=== PATIENT | female | born 2000 | race Caucasian/White ===

== ENCOUNTER → 2020-11-30 14:40 | Outpatient (CLI) | payer SELFPAY ==
[2020-11-30 16:45] LABS: Absolute Lymphocyte Count 1.05 X10^3/uL (0.83-4.51); Absolute Neutrophil Count 6.6 X10^3/uL (2.0-7.7); Basophil# 0.02 X10^3/uL; Basophil% 0.2 % (0-1); Eosinophil# 0.01 X10^3/uL; Eosinophils% 0.1 % (0-5); Hematocrit 39.9 % (37-47); Hemoglobin 13.3 g/dL (12.0-15.0); Lymphocyte # 1.05 X10^3/ul (4.0); Mean Corp Hgb Conc 33.3 g/dL (32-36); Mean Corpuscular Hgb 29.1 pg (27.0-32.0); Mean Corpuscular Volume 87.3 fL (81-99); Mean Platelet Vol. 10.1 fl (6.2-12.0); Monocyte# 0.42 X10^3/uL; Monocyte% 5.2 % (0-10); NRBC Flagged by Analyzer 0 % (0-5); Neutrophil # 6.57 X10^3/uL (2.7-7.7); Neutrophil % 81.1 % (47-70); Platelet Count 280 K/mm3 (150-450); RBC Distribution Width CV 11.6 % (11.6-14.6); RBC Distribution Width SD 37.3 fl (35.1-43.9); Red Blood Count 4.57 M/mm3 (4.2-5.4); White Blood Count 8.1 K/mm3 (4.4-11.0)
[2020-12-01 09:43] LABS: HIV - WCH Non-Reactive (Nonreactive); Hepatitis B Surface Antigen Non-Reactive (Nonreactive); Hepatitis C Antibody Non-Reactive (Nonreactive); Rubella IgG Reactive (Nonreactive); Syphilis Antibodies Non-reactive
[2020-12-03 06:07] LABS: Chlamydia By Nucleic Acid AMP Negative (Negative)
[2020-12-03 08:26] LABS: Gonococcus By Nucleic Acid AMP Negative (Negative)
[2020-12-03 13:06] LABS: HPV Reflexed? NOT INDICATED
== END ==
PROVIDERS: Visit Provider Student in an Organized Health Care Education/Training Program
DX: Z34.81 Encounter for supervision of other normal pregnancy, first trimester (principal)
CPT/HCPCS: 36415; 85025; 86703; 86762; 86803; 87086; 87340; 87491; 87591; 88175; G0145

== ENCOUNTER → 2021-03-25 09:07 | Outpatient (CLI) | payer SELFPAY ==
[2021-03-25 13:26] LABS: Hematocrit 35.3 % (37-47); Hemoglobin 11.8 g/dL (12.0-15.0); Mean Corp Hgb Conc 33.4 g/dL (32-36); Mean Corpuscular Hgb 30.8 pg (27.0-32.0); Mean Corpuscular Volume 92.2 fL (81-99); Mean Platelet Vol. 10.2 fl (6.2-12.0); Platelet Count 267 K/mm3 (150-450); RBC Distribution Width CV 12.4 % (11.6-14.6); RBC Distribution Width SD 41.8 fl (35.1-43.9); Red Blood Count 3.83 M/mm3 (4.2-5.4); White Blood Count 7.8 K/mm3 (4.4-11.0)
[2021-03-25 13:30] LABS: Glucose Challenge Gest 1H 50g 72 mg/dL (70-140)
== END ==
PROVIDERS: Visit Provider Student in an Organized Health Care Education/Training Program
DX: Z34.82 Encounter for supervision of other normal pregnancy, second trimester (principal)
CPT/HCPCS: 36415; 82950; 85027

== ENCOUNTER → 2021-06-09 14:49 | Outpatient (CLI) | payer SELFPAY | PROVIDERS: Visit Provider Obstetrics & Gynecology | DX: Z36.85 Encounter for antenatal screening for Streptococcus B (principal) | CPT/HCPCS: 87081 ==

== ENCOUNTER → 2021-07-02 16:21 | Outpatient (CLI) | payer SELFPAY ==
[2021-07-02 16:47] LABS: Hematocrit 33.3 % (37-47); Hemoglobin 11.2 g/dL (12.0-15.0); Mean Corp Hgb Conc 33.6 g/dL (32-36); Mean Corpuscular Hgb 30.2 pg (27.0-32.0); Mean Corpuscular Volume 89.8 fL (81-99); Mean Platelet Vol. 10.1 fl (6.2-12.0); Platelet Count 269 K/mm3 (150-450); RBC Distribution Width CV 12.4 % (11.6-14.6); Red Blood Count 3.71 M/mm3 (4.2-5.4); White Blood Count 8.1 K/mm3 (4.4-11.0)
[2021-07-02 17:00] LABS: Protein, Urine (Random) 7.8 mg/dL (<11.9); Protein:Creat Ratio 224 mg/g CRE (0-200)
[2021-07-02 17:46] LABS: ALB/GLOB Ratio 0.5 RATIO (0.9-2.4); AST(SGOT) 42 U/L (15-37); Alanine Aminotransfer ALT/SGPT 72 U/L (13-56); Albumin, Serum 2.6 g/dL (3.2-5.0); Alkaline Phosphatase 139 U/L (45-117); Anion Gap 10 (5-15); BUN 12 mg/dL (7-18); BUN/Creat Ratio 17.4 RATIO (10-20); Calcium,Total 9.2 mg/dL (8.5-10.1); Chloride 105 mmol/L (98-107); Creatinine, Serum 0.69 mg/dL (0.55-1.02); EST Glomerular Filtration Rate 113 mL/min (>60); Est Glom Filt Rate - Afr Amer 136 mL/min (>60); Globulin 4.9 g/dL (2.2-4.2); Glucose 75 mg/dL (74-106); LDH 179 U/L (84-246); Potassium 3.8 mmol/L (3.5-5.1); Protein, Total 7.5 g/dL (6.4-8.2); Sodium Level 136 mmol/L (136-145); Uric Acid 5.8 mg/dL (2.6-6.0)
== END ==
PROVIDERS: Visit Provider Obstetrics & Gynecology
DX: Z34.83 Encounter for supervision of other normal pregnancy, third trimester (principal)
CPT/HCPCS: 36415; 80053; 82570; 83615; 84156; 84550; 85027

== ENCOUNTER 2021-07-03 15:25 | Outpatient (CLI) | payer SELFPAY ==
[2021-07-03 15:58] VITALS: BP 119/73; PULSE 79
--- NOTE | 2021-07-03 16:05 | OB.TRI.NOTE ---
HPI - General HPI Narrative EDDIE NSASAR, is a 20 F who presents for labs and blood pressure check PFSH PFSH Home Medications [id number] [] 1 tab PO 07/03/21 [History Last Taken 07/03/21 14:00] Allergy/AdvReac Type Severity Reaction Status Date / Time No Known Allergies Allergy Verified 07/03/21 16:05 NST FHR Rate Baby A Baseline: 130 Variability:: Moderate Accelerations:: 15 x 15 Decelerations:: None NST Reactive:: Yes Uterine Activity:: quiet Assessment & Plan (1) : PLAN: Patient arrives for blood pressure check and labs. Patient asymptomatic. Blood pressures within normal limits. Labs stable, LFTs slightly over normal but not doubled the upper limit of normal. All other labs within normal limits. Recent Covid infection possible reason for slightly elevated LFTs. No signs of preeclampsia at this time. Okay to discharge home and follow-up at scheduled appointments.
[2021-07-03 16:07] VITALS: BMI 30.5
[2021-07-03 16:15] VITALS: BP 117/74; PULSE 83
[2021-07-03 16:54] VITALS: BP 124/70; PULSE 73
[2021-07-03 17:17] LABS: Absolute Lymphocyte Count 1.38 X10^3/uL (0.83-4.51); Absolute Neutrophil Count 6.6 X10^3/uL (2.0-7.7); Basophil# 0.03 X10^3/uL; Basophil% 0.3 % (0-1); Eosinophil# 0.03 X10^3/uL; Eosinophils% 0.3 % (0-5); Hematocrit 32.7 % (37-47); Hemoglobin 11.2 g/dL (12.0-15.0); Lymphocyte # 1.38 X10^3/ul (0.83-4.51); Lymphocyte % 15.8 % (19-41); Mean Corp Hgb Conc 34.3 g/dL (32-36); Mean Corpuscular Hgb 30.4 pg (27.0-32.0); Mean Corpuscular Volume 88.9 fL (81-99); Mean Platelet Vol. 10.3 fl (6.2-12.0); Monocyte# 0.59 X10^3/uL; Monocyte% 6.8 % (0-10); NRBC Flagged by Analyzer 0 % (0-5); Neutrophil # 6.56 X10^3/uL (2.7-7.7); Neutrophil % 75.2 % (47-70); Platelet Count 256 K/mm3 (150-450); RBC Distribution Width CV 12.4 % (11.6-14.6); RBC Distribution Width SD 39.5 fl (35.1-43.9); Red Blood Count 3.68 M/mm3 (4.2-5.4); White Blood Count 8.7 K/mm3 (4.4-11.0)
[2021-07-03 17:22] VITALS: BP 127/82; PULSE 68
[2021-07-03 17:34] LABS: ALB/GLOB Ratio 0.6 RATIO (0.9-2.4); AST(SGOT) 38 U/L (15-37); Alanine Aminotransfer ALT/SGPT 64 U/L (13-56); Albumin, Serum 2.7 g/dL (3.2-5.0); Alkaline Phosphatase 132 U/L (45-117); Anion Gap 10 (5-15); BUN 14 mg/dL (7-18); BUN/Creat Ratio 20.2 RATIO (10-20); Calcium,Total 9.6 mg/dL (8.5-10.1); Chloride 107 mmol/L (98-107); Creatinine, Serum 0.69 mg/dL (0.55-1.02); EST Glomerular Filtration Rate 112 mL/min (>60); Est Glom Filt Rate - Afr Amer 135 mL/min (>60); Globulin 4.7 g/dL (2.2-4.2); Glucose 84 mg/dL (74-106); LDH 180 U/L (84-246); Potassium 3.9 mmol/L (3.5-5.1); Protein, Total 7.4 g/dL (6.4-8.2); Sodium Level 138 mmol/L (136-145)
== END 2021-07-03 17:48 | disposition home or self-care (01) ==
LOC: WPOUT 15:30 → WP 15:31
PROVIDERS: Referring Provider Obstetrics & Gynecology; Visit Provider Obstetrics & Gynecology
DX: Z34.90 Encounter for supervision of normal pregnancy, unspecified, unspecified trimester (principal); Z86.16 Personal history of COVID-19
CPT/HCPCS: 59050; 80053; 83615; 85025; 99218; G0378

== ENCOUNTER → 2021-07-09 13:23 | Outpatient (CLI) | payer SELFPAY ==
[2021-07-09 14:09] LABS: Hematocrit 33.7 % (37-47); Hemoglobin 11.4 g/dL (12.0-15.0); Mean Corp Hgb Conc 33.8 g/dL (32-36); Mean Corpuscular Hgb 30.5 pg (27.0-32.0); Mean Corpuscular Volume 90.1 fL (81-99); Mean Platelet Vol. 10.9 fl (6.2-12.0); Platelet Count 234 K/mm3 (150-450); RBC Distribution Width CV 12.8 % (11.6-14.6); RBC Distribution Width SD 41.6 fl (35.1-43.9); Red Blood Count 3.74 M/mm3 (4.2-5.4); White Blood Count 10.9 K/mm3 (4.4-11.0)
[2021-07-09 14:22] LABS: ALB/GLOB Ratio 0.6 RATIO (0.9-2.4); AST(SGOT) 23 U/L (15-37); Alanine Aminotransfer ALT/SGPT 29 U/L (13-56); Albumin, Serum 2.9 g/dL (3.2-5.0); Alkaline Phosphatase 146 U/L (45-117); Anion Gap 10 (5-15); BUN 8 mg/dL (7-18); BUN/Creat Ratio 13.1 RATIO (10-20); Calcium,Total 9.4 mg/dL (8.5-10.1); Chloride 104 mmol/L (98-107); Creatinine, Serum 0.61 mg/dL (0.55-1.02); EST Glomerular Filtration Rate 130 mL/min (>60); Est Glom Filt Rate - Afr Amer 157 mL/min (>60); Glucose 79 mg/dL (74-106); LDH 173 U/L (84-246); Potassium 3.4 mmol/L (3.5-5.1); Protein, Total 7.9 g/dL (6.4-8.2); Sodium Level 137 mmol/L (136-145); Uric Acid 6.3 mg/dL (2.6-6.0)
[2021-07-09 14:24] LABS: Protein, Urine (Random) 20.6 mg/dL (<11.9); Protein:Creat Ratio 349 mg/g CRE (0-200)
== END ==
PROVIDERS: Visit Provider Obstetrics & Gynecology
DX: Z34.83 Encounter for supervision of other normal pregnancy, third trimester (principal)
CPT/HCPCS: 36415; 80053; 82570; 83615; 84156; 84550; 85027

== ENCOUNTER 2021-07-09 19:30 | Inpatient (IN) | payer SELFPAY ==
[2021-07-09] VITALS (7 sets, daily range): BP systolic 130–140; BP diastolic 67–87; PULSE 70–93; TEMP 36.1–36.7; O2SAT 97; BMI 29.8
[2021-07-09] MEDS: Lactated Ringers 1,000 ML 50 ML IV (21:10)
[2021-07-09] MEDS: Lactated Ringers 500 ML 999 ML IV ×2 (21:20→22:50)
[2021-07-09 21:24] LABS: Absolute Lymphocyte Count 1.63 X10^3/uL (0.83-4.51); Absolute Neutrophil Count 7.5 X10^3/uL (2.0-7.7); Basophil# 0.05 X10^3/uL; Basophil% 0.5 % (0-1); Eosinophil# 0.05 X10^3/uL; Eosinophils% 0.5 % (0-5); Hematocrit 31.4 % (37-47); Hemoglobin 10.4 g/dL (12.0-15.0); Lymphocyte # 1.63 X10^3/ul (0.83-4.51); Lymphocyte % 16.3 % (19-41); Mean Corp Hgb Conc 33.1 g/dL (32-36); Mean Corpuscular Volume 90.5 fL (81-99); Mean Platelet Vol. 10.6 fl (6.2-12.0); Monocyte# 0.71 X10^3/uL; Monocyte% 7.1 % (0-10); NRBC Flagged by Analyzer 0 % (0-5); Neutrophil # 7.45 X10^3/uL (2.7-7.7); Neutrophil % 74.7 % (47-70); Platelet Count 241 K/mm3 (150-450); RBC Distribution Width CV 12.9 % (11.6-14.6); RBC Distribution Width SD 41.5 fl (35.1-43.9); Red Blood Count 3.47 M/mm3 (4.2-5.4)
[2021-07-09] MEDS: Acetaminophen 500 MG Tablet PO (22:52)
[2021-07-10] VITALS (88 sets, daily range): BP systolic 117–141; BP diastolic 66–96; PULSE 41–188; RESP 16; TEMP 36–37.1; O2SAT 83–100
[2021-07-10] MEDS: Oxytocin 30 units/NS 500 ml 30 UNITS/500 ML IV.SOLN IV (00:49)
[2021-07-10 01:59] LABS: ROM Internal Control Test YES-OK TO RESULT pt. (Internal QC)
[2021-07-10 02:00] LABS: ROM Patient Test POSITIVE (Negative)
[2021-07-10] MEDS: fentaNYL 100 MCG/2 ML Ampul IV (02:13)
[2021-07-10] MEDS: Lactated Ringers 500 ML 999 ML IV ×2 (02:31→05:10)
[2021-07-10] MEDS: fentaNYL-bupivacaine (epidural) 100 ML BAG EPIDURAL ×2 (06:00→10:09)
[2021-07-10] MEDS: 0.9% Normal Saline Single 100 ML IV.SOLN. INTRA-UTER (09:20)
--- NOTE | 2021-07-10 09:20 | HP.PCM.OB_ITS ---
HPI - General General Date of Admission: 07/09/21 HPI Narrative 20 yo admitted at 40/4w, KARLA 07/05/21 by early US, admitted for induction of labor for pre-eclampsia without severe features. Denies VERDE, vision changes, chest pain, dyspnea, nausea/emesis. Reports FM, contractions. Denies LOF, VB. PFSH PFSH Medical History (Updated 07/10/21 @ 09:[address] Dalila Mac, DO) Tonsillectomy planned Home Medications [id number] [] 1 tab PO DAILY 07/03/21 [History Last Taken 07/08/21] Allergy/AdvReac Type Severity Reaction Status Date / Time No Known Allergies Allergy Verified 07/03/21 16:05 Surgical History History of surgery Social History (Updated 07/10/21 @ 09:[address] Dalila Mac, ) Smoking Status: Never smoker alcohol intake: never substance use type: does not use History 1 Elective abortions Hx Para 0 Spontaneous abortions Hx # Term Pregnancies Ectopic pregnancies Hx # Pregnancies Multiple births # of living children NST FHR Rate Baby A Baseline: 145 Variability:: Moderate Accelerations:: 15 x 15 Decelerations:: None NST Reactive:: Yes FHR Category:: Category I ROS Constitutional Constitutional: Reports systems reviewed and no addt'l complaints, except as documented Eyes Eyes: Reports systems reviewed and no addt'l complaints, except as documented ENT HEENT: Reports systems reviewed and no addt'l complaints, except as documented Cardiovascular Cardiovascular: Reports systems reviewed and no addt'l complaints, except as documented Respiratory/Chest Respiratory/Chest: Reports systems reviewed and no addt'l complaints, except as documented Gastrointestinal Gastrointestinal: Reports systems reviewed and no addt'l complaints, except as documented Genitourinary Genitourinary: Reports systems reviewed and no addt'l complaints, except as documented Musculoskeletal Musculoskeletal: Reports systems reviewed and no addt'l complaints, except as documented Neurologic Neurologic: Reports systems reviewed and no addt'l complaints, except as documented Psychiatric Psychiatric: Reports systems reviewed and no addt'l complaints, except as docume nted Vital Signs Vital Signs Vital Signs: 07/09/21 20:33 07/09/21 20:34 07/09/21 20:40 Temperature 98.0 F Temperature Source Temporal Pulse Rate 91 93 78 Blood Pressure 132/84 H BP Systolic 132 BP Diastolic 84 Pulse Ox 97 07/09/21 22:19 07/09/21 22:35 07/09/21 23:21 Temperature Temperature Source Pulse Rate 72 70 74 Blood Pressure 140/87 H 133/81 H 130/67 H BP Systolic 140 133 130 BP Diastolic 87 81 67 Pulse Ox 07/09/21 23:22 07/10/21 00:50 07/10/21 00:51 Temperature 97.0 F L 97.0 F L Temperature Source Temporal Temporal Pulse Rate 80 Blood Pressure 127/80 H BP Systolic 127 BP Diastolic 80 Pulse Ox 07/10/21 01:24 07/10/21 02:16 07/10/21 02:17 Temperature 96.9 F L 97.2 F L Temperature Source Temporal Temporal Pulse Rate 69 82 Blood Pressure 122/70 H 141/86 H BP Systolic 122 141 BP Diastolic 70 86 Pulse Ox 07/10/21 03:25 07/10/21 05:41 07/10/21 05:42 Temperature 97.9 F Temperature Source Temporal Pulse Rate 72 108 H 93 Blood Pressure 135/90 H 137/96 H BP Systolic 135 137 BP Diastolic 90 96 Pulse Ox 99 100 07/10/21 05:46 07/10/21 05:51 07/10/21 05:52 Temperature Temperature Source Pulse Rate 82 118 H 97 Blood Pressure 138/93 H 139/92 H BP Systolic 138 139 BP Diastolic 93 92 Pulse Ox 100 100 07/10/21 05:56 07/10/21 05:57 07/10/21 06:01 Temperature Temperature Source Pulse Rate 75 85 Blood Pressure 137/88 H BP Systolic 137 BP Diastolic 88 Pulse Ox 100 98 07/10/21 06:02 07/10/21 06:06 07/10/21 06:07 Temperature Temperature Source Pulse Rate 86 78 Blood Pressure 134/88 H 134/81 H BP Systolic 134 134 BP Diastolic 88 81 Pulse Ox 99 07/10/21 06:11 07/10/21 06:12 07/10/21 06:16 Temperature Temperature Source Pulse Rate 81 78 Blood Pressure 135/82 H 131/76 H BP Systolic 135 131 BP Diastolic 82 76 Pulse Ox 98 98 07/10/21 06:21 07/10/21 06:26 07/10/21 06:28 Temperature Temperature Source Pulse Rate 78 72 72 Blood Pressure 134/77 H 131/66 H BP Systolic 134 131 BP Diastolic 77 66 Pulse Ox 98 97 07/10/21 06:31 07/10/21 06:36 07/10/21 06:37 Temperature Temperature Source Pulse Rate 75 76 Blood Pressure 131/70 H 130/71 H BP Systolic 131 130 BP Diastolic 70 71 Pulse Ox 97 97 07/10/21 06:41 07/10/21 06:46 07/10/21 06:48 Temperature Temperature Source Pulse Rate 76 69 76 Blood Pressure 130/71 H 130/77 H BP Systolic 130 130 BP Diastolic 71 77 Pulse Ox 97 97 07/10/21 06:51 07/10/21 06:56 07/10/21 07:01 Temperature Temperature Source Pulse Rate 75 73 Blood Pressure 136/83 H 133/70 H BP Systolic 136 133 BP Diastolic 83 70 Pulse Ox 97 97 97 07/10/21 07:02 07/10/21 07:06 07/10/21 07:11 Temperature Temperature Source Pulse Rate 79 82 Blood Pressure 131/79 H 131/78 H BP Systolic 131 131 BP Diastolic 79 78 Pulse Ox 98 98 07/10/21 07:12 07/10/21 07:16 07/10/21 07:21 Temperature Temperature Source Pulse Rate 77 79 81 Blood Pressure 130/81 H 130/73 H 134/75 H BP Systolic 130 130 134 BP Diastolic 81 73 75 Pulse Ox 97 97 07/10/21 07:26 07/10/21 07:31 07/10/21 07:36 Temperature Temperature Source Pulse Rate 81 79 85 Blood Pressure BP Systolic BP Diastolic Pulse Ox 98 99 99 07/10/21 07:38 07/10/21 07:41 07/10/21 07:45 Temperature 97.1 F L Temperature Source Temporal Pulse Rate 62 69 Blood Pressure BP Systolic BP Diastolic Pulse Ox 99 98 83 07/10/21 08:40 07/10/21 08:41 Temperature 97.3 F L Temperature Source Temporal Pulse Rate 75 Blood Pressure 117/67 BP Systolic 117 BP Diastolic 67 Pulse Ox 98 Weight Weight: 73.936 kg Body Mass Index (BMI) 29.8 Physical Exam Const alert, oriented x3 and no apparent distress HEENT normocephalic Head and Scalp: atraumatic Eyes PERRL Neck full ROM Lymph Lymphatic: no lymphadenopathy noted Resp normal respiratory effort and clear to auscultation bilaterally Cardio regular rate and regular rhythm GI normal to inspection, nondistended, normoactive bowel sounds GI Narrative: gravid Narrative: 1 cm per RN Back/Spine normal ROM Extremity normal to inspection Skin no rashes or lesions noted Neuro no focal motor deficits and no sensory deficits noted Psych mental status grossly normal Labs Labs Labs: Blood Type A POSITIVE Antibody Screen NEGATIVE Hct 31.4 % (37-47) L Hgb 10.4 g/dL (12.0-15.0) L Syphilis Total Ab Non-reactive Rubella IgG Antibody Reactive (Nonreactive) Hep Bs Antigen Non-Reactive (Nonreactive) Neisseria gonorrhoeae DNA (ERNA) Negative (Negative) HIV 1&2 Antibody Non-Reactive (Nonreactive) Glucose 1 Hr 50 gm 72 mg/dL (70-140) Assessment & Plan (1) Pre-eclampsia: PLAN: 20 yo admitted at 40/4w, KARLA 07/05/21 by early US, admitted for induction of labor for pre-eclampsia without severe features based on elevated blood pressures and proteinuria. Transaminitis has resolved, likely secondary to recent COVID-19 infection. Pitocin induction. GBS negative 06/09/21. SROM overnight. (2) :
[2021-07-10] MEDS: Lactated Ringers 1,000 ML 200 ML IV (09:44)
--- NOTE | 2021-07-10 09:44 | PCM.PN.BLA ---
Progress Note Patient seen and examined, comfortable with epidural. Al bulb placed. Cat I - FHR 145/mod flako/+accel/no decel, toco q1-5. Pitocin at 4. Continue to titrate as tolerated. Meconium fluid noted on exam, explained to patient. All questions answered.
[2021-07-10] MEDS: Ondansetron 4 MG/2 ML Vial IV (11:14)
[2021-07-10] MEDS: Oxytocin 30 units/NS 500 ml 30 UNITS/500 ML IV.SOLN 334 UNITS IV (14:32)
--- NOTE | 2021-07-10 14:54 | EX.PCM.OBRPT ---
Maternal Data Information Final KARLA: 07/05/21 Final KARLA Source: US <20 weeks Vaginal Delivery Operative Information Date of Procedure: 07/10/21 Pre-Operative Diagnosis: [place] intrauterine , preeclampsia, Meconium fluid Post-Operative Diagnosis: [place] intrauterine , preeclampsia, Meconium fluid Surgery / Procedure Performed: Spontaneous Vaginal Delivery Type of Anesthesia: Epidural Estimated Blood Loss: 300 cc Findings Description of Procedure: Spontaneous vaginal delivery of viable infant male. Nuchal cord x1, loose, partial cord tear with attempt for reduction. Delivered through. Immediate cord clamped and cut. Baby to awaiting pediatric team who was present due to meconium fluid. Spontaneous delivery of placenta. Second-degree laceration repaired in the usual fashion. Left labial edema noted greater than right, stable in size. Infant A Gender: Male (1 minute): 8 (5 minute): 9
[2021-07-10] MEDS: Ibuprofen 600 MG Tablet PO (19:05)
[2021-07-10] MEDS: Benzocaine/Lanolin/Aloe Vera 1 SPRAY EACH TOPICAL (19:06)
[2021-07-11 00:41] VITALS: BP 108/57; PULSE 75; RESP 16; TEMP 36.9
[2021-07-11] MEDS: Ibuprofen 600 MG Tablet PO ×3 (03:29→16:33)
[2021-07-11 04:29] VITALS: BP 115/64; PULSE 73; RESP 16; TEMP 37
[2021-07-11 06:55] LABS: Hematocrit 27.8 % (37-47); Hemoglobin 9.2 g/dL (12.0-15.0); Mean Corp Hgb Conc 33.1 g/dL (32-36); Mean Corpuscular Hgb 29.9 pg (27.0-32.0); Mean Corpuscular Volume 90.3 fL (81-99); Mean Platelet Vol. 10.1 fl (6.2-12.0); Platelet Count 186 K/mm3 (150-450); RBC Distribution Width CV 12.9 % (11.6-14.6); RBC Distribution Width SD 41.7 fl (35.1-43.9); Red Blood Count 3.08 M/mm3 (4.2-5.4); White Blood Count 11.3 K/mm3 (4.4-11.0)
[2021-07-11 07:17] LABS: ALB/GLOB Ratio 0.5 RATIO (0.9-2.4); AST(SGOT) 29 U/L (15-37); Alanine Aminotransfer ALT/SGPT 22 U/L (13-56); Albumin, Serum 2.1 g/dL (3.2-5.0); Alkaline Phosphatase 104 U/L (45-117); Anion Gap 9 (5-15); BUN 6 mg/dL (7-18); BUN/Creat Ratio 9.5 RATIO (10-20); Calcium,Total 8.7 mg/dL (8.5-10.1); Chloride 107 mmol/L (98-107); Creatinine, Serum 0.63 mg/dL (0.55-1.02); EST Glomerular Filtration Rate 125 mL/min (>60); Est Glom Filt Rate - Afr Amer 151 mL/min (>60); Estimated Creatinine Clearance 110.78 ml/min; Globulin 3.9 g/dL (2.2-4.2); Glucose 81 mg/dL (74-106); Potassium 3.6 mmol/L (3.5-5.1); Sodium Level 138 mmol/L (136-145)
--- NOTE | 2021-07-11 09:45 | PN.OBGYN_ITS ---
Subjective Subjective day 1 status post . Reports perineal soreness that is relieved with Tylenol and Motrin. Voiding spontaneously. Breast-feeding is going well. Denies headache, vision changes, chest pain, shortness of breath, nausea or vomiting. Objective Data Objective Data Vital Signs: Vital Signs Temp Pulse Resp BP Pulse Ox 98.6 F 73 16 115/64 83 07/11/21 04:29 07/11/21 04:29 07/11/21 04:29 07/11/21 04:29 07/10/21 19:56 Oxygen Delivery Method Room Air Weight: 73.936 kg Body Mass Index (BMI) 29.8 Intake & Output: Intake and Output for Last 24 Hours 07/09/21 07/10/21 07/11/21 23:59 23:59 23:59 Intake Total 1008.33 / 1008.33 3257.20 / 3257.20 Output Total 3600 / 3600 600 / 600 Balance 1008.33 / 1008.33 -342.80 / -342.80 -600 / -600 Lab / Micro Data Result Diagrams: 07/11/21 06:40 07/11/21 06:40 Labs: Laboratory Results - last 24 hr 07/11/21 06:40: Sodium 138, Potassium 3.6, Chloride 107, Carbon Dioxide 22.0, Anion Gap 9, BUN 6 L, Creatinine 0.63, Estim Creat Clear Calc 110.78, Est GFR (MDRD) Af Amer 151, Est GFR (MDRD) Non-Af 125, BUN/Creatinine Ratio 9.5 L, Glucose 81, Calcium 8.7, Total Bilirubin 0.40, AST 29, ALT 22, Alkaline Phosphatase 104, Total Protein 6.0 L, Albumin 2.1 L, Globulin 3.9, Albumin/Globulin Ratio 0.5 L 07/11/21 06:40: WBC 11.3 H, RBC 3.08 L, Hgb 9.2 L, Hct 27.8 L, MCV 90.3, MCH 29.9, MCHC 33.1, RDW Std Deviation 41.7, RDW Coeff of Shubham 12.9, Plt Count 186, MPV 10.1 Physical Exam Const alert, oriented x3 and no apparent distress HEENT normocephalic Head and Scalp: atraumatic Neck full ROM Resp normal respiratory effort Cardio regular rate GI normal to inspection, nondistended, normoactive bowel sounds GI Narrative: Uterus 2 cm below umbilicus Back/Spine normal ROM Extremity normal to inspection Extremity Narrative: Minimal pedal edema Neuro no focal motor deficits, no sensory deficits noted and deep tendon reflexes 2+ bilaterally Motor Exam: clonus absent Psych mental status grossly normal and affect normal Assessment & Plan (1) Pre-eclampsia: PLAN: day 1 status post . Complicated by preeclampsia without severe features. Blood pressures well controlled, blood work within normal limits. Will need 1 week visit for blood pressure check and 6-week visit. Breast-feeding. Acute on chronic anemia, iron s upplement on discharge. (2) Vaginal delivery:
[2021-07-11 10:00] VITALS: BP 120/72; PULSE 79; RESP 16; TEMP 36.3; O2SAT 97
[2021-07-11 13:00] VITALS: BP 121/77; PULSE 92; RESP 16; TEMP 36.4; O2SAT 96
[2021-07-11] MEDS: Acetaminophen 500 MG Tablet 1000 MG PO (13:25)
[2021-07-11 20:34] VITALS: BP 134/79; PULSE 74; RESP 16; TEMP 36.1
[2021-07-12 02:55] VITALS: BP 133/92; PULSE 92; RESP 16; TEMP 36.3
[2021-07-12] MEDS: Ibuprofen 600 MG Tablet PO (02:56)
[2021-07-12] MEDS: Acetaminophen 500 MG Tablet 1000 MG PO (04:35)
--- NOTE | 2021-07-12 08:28 | PCM.PN.OB ---
Subjective Subjective day 2. Feeling well. Denies headache, vision changes, chest pain, shortness of breath, nausea or vomiting, right upper quadrant pain. Objective Data Objective Data Vital Signs: Vital Signs Temp Pulse Resp BP Pulse Ox 97.3 F L 92 16 133/92 H 96 07/12/21 02:55 07/12/21 02:55 07/12/21 02:55 07/12/21 02:55 07/11/21 13:00 Oxygen Delivery Method Room Air Weight: 73.936 kg Body Mass Index (BMI) 29.8 Intake & Output: Intake and Output for Last 24 Hours 07/10/21 07/11/21 07/12/21 23:59 23:59 23:59 Intake Total 3257.20 / 3257.20 Output Total 3600 / 3600 600 / 600 Balance -342.80 / -342.80 -600 / -600 Lab / Micro Data Result Diagrams: 07/11/21 06:40 07/11/21 06:40 Physical Exam Const alert, oriented x3 and no apparent distress HEENT normocephalic Head and Scalp: atraumatic Neck full ROM Resp normal respiratory effort Cardio regular rate GI normal to inspection, nondistended, normoactive bowel sounds GI Narrative: Uterus 2 cm below umbilicus Back/Spine normal ROM Extremity normal to inspection and no clubbing, cyanosis or edema Extremity Narrative: Minimal pedal edema Neuro no focal motor deficits, no sensory deficits noted and deep tendon reflexes 2+ bilaterally Motor Exam: clonus absent Psych mental status grossly normal and affect normal Assessment & Plan (1) Pre-eclampsia: QUALIFIERS: Trimester: unspecified trimester Qualified Code(s): O14.90 - Unspecified pre-eclampsia, unspecified trimester PLAN: day 2 status post . Complicated by preeclampsia without severe features. Blood pressures well controlled, blood work within normal limits. Will need 1 week visit for blood pressure check and 6-week visit. Signs/symptoms of pre-eclampsia reviewed, call parameters reviewed. Breast-feeding. Acute on chronic anemia, iron supplement on discharge. (2) Vaginal delivery:
--- NOTE | 2021-07-12 08:30 | PCM.DC ---
Discharge Instructions Diet Discharge Diet: No restrictions Activity Discharge Activity: Return to Normal Activity and May Shower May resume sexual activity in: 4-6 weeks Weight Bearing Status: Weight bearing as tolerated Lifting Restrictions: No greater than 25 pounds Dressing / Incision Call your doctor if you observe: Fever of 101 or Higher, Change in Color, Inability to urinate, Using more than 1 pad per hour, Shortness of breath, Dizziness, Swelling in the ankles, Chest pain and Calf discomfort Follow Up Care Please Follow Up With: Lety Yao MD When: 1 week BP check and visit, 6-week visit Test Results: Test results from this visit will be discussed in further detail at your follow-up appointment, if applicable. Discharge Plan Admission Admit Date/Time: 07/09/21 19:30 Attending Provider: Dalila Mac Primary Care Provider: Care Physician,Monica Primary Instructions Forms: Information, Information Discharge Orders/Prescriptions Prescriptions: No Action 1 mg Tablet 1 tab PO DAILY RF: 0 Referrals / Follow Up: Care Physician,No Primary [Primary Care Provider] - Disposition Disposition (needs filled in before D/C Order can be placed): Home, Self Care
[2021-07-12 09:00] VITALS: BP 117/67; PULSE 70; RESP 16; TEMP 36.2
== END 2021-07-12 10:45 | disposition home or self-care (01) | DRG 807 ==
PROVIDERS: Admitting Provider Student in an Organized Health Care Education/Training Program; Visit Provider Student in an Organized Health Care Education/Training Program
DX: O14.94 Unspecified pre-eclampsia, complicating childbirth (principal); Z37.0 Single live birth; O77.0 Labor and delivery complicated by meconium in amniotic fluid; O69.81X0 Labor and delivery complicated by cord around neck, without compression, not applicable or unspecified; Z3A.40 40 weeks gestation of pregnancy; Z86.16 Personal history of COVID-19; O99.02 Anemia complicating childbirth
CPT/HCPCS: 59025; 59050; 80053; 84112; 85025; 85027; 86850; 86900; 86901; 99218; J7120; G0378; J2405

== ENCOUNTER → 2021-08-23 14:52 | Outpatient (CLI) | payer SELFPAY | PROVIDERS: Visit Provider Student in an Organized Health Care Education/Training Program | DX: N76.0 Acute vaginitis (principal) ==

== ENCOUNTER 2021-12-09 09:37 | Outpatient (CLI) | payer SELFPAY | END 2021-12-09 23:59 | disposition home or self-care (01) | PROVIDERS: Visit Provider Student in an Organized Health Care Education/Training Program | DX: Z00.00 Encounter for general adult medical examination without abnormal findings (principal); N77.1 Vaginitis, vulvitis and vulvovaginitis in diseases classified elsewhere ==

== ENCOUNTER → 2025-01-01 | Outpatient (CLI) | payer SELFPAY | END | disposition home or self-care (01) | LOC: LABSPEC 15:11 | PROVIDERS: Referring Provider Nurse Practitioner Family; Visit Provider Nurse Practitioner Family | DX: Z12.4 Encounter for screening for malignant neoplasm of cervix (principal) | CPT/HCPCS: 88175; G0145 ==

== ENCOUNTER → 2025-08-18 | Outpatient (CLI) | payer SELFPAY ==
[2025-08-18 16:38] LABS: Hematocrit 34.8 % (37-47); Hemoglobin 11.9 g/dL (12.0-15.0); Immature Granulocytes Count 0.040 X10^3/uL (0.0-0.0); Mean Corp Hgb Conc 34.2 g/dL (32-36); Mean Corpuscular Volume 87.0 fL (81-99); Mean Platelet Vol. 9.8 fl (6.2-12.0); NRBC Flagged by Analyzer 0 % (0-5); Platelet Count 262 K/mm3 (150-450); RBC Distribution Width CV 11.8 % (11.6-14.6); RBC Distribution Width SD 37.1 fl (35.1-43.9); Red Blood Count 4.00 M/mm3 (4.2-5.4); White Blood Count 6.8 K/mm3 (4.4-11.0)
[2025-08-18 17:16] LABS: Creatinine, Urine (random) 171.00 mg/dL (28.00-217.00); Protein, Urine (Random) 21.3 mg/dL (0.0-12.0); Protein:Creat Ratio 125 mg/g CRE (0-200)
[2025-08-18 17:36] LABS: AST(SGOT) 29 U/L (<=31); Alanine Aminotransfer ALT/SGPT 39 U/L (<=34); Albumin, Serum 4.2 g/dL (3.5-5.0); Alkaline Phosphatase 51 U/L (35-104); Anion Gap 12 (5-15); BUN 8 mg/dL (4-19); BUN/Creat Ratio 17.7 RATIO (10-20); Calcium,Total 9.4 mg/dL (7.6-11.0); Carbon Dioxide 23.3 mmol/L (21.0-32.0); Chloride 103 mmol/L (98-108); Globulin 3.2 g/dL (2.2-4.2); Glucose 87 mg/dL (70-99); HIV Nonreactive (Nonreactive); Hepatitis B Surface Antigen Nonreactive (Nonreactive); Hepatitis C Antibody Nonreactive (Nonreactive); Potassium 4.1 mmol/L (3.3-5.1); Syphilis Antibodies Nonreactive (Nonreactive)
[2025-08-20 22:07] LABS: Chlamydia By Nucleic Acid AMP Negative (Negative); Gonococcus By Nucleic Acid AMP Negative (Negative)
== END | disposition home or self-care (01) ==
PROVIDERS: Visit Provider Student in an Organized Health Care Education/Training Program
DX: O09.90 Supervision of high risk pregnancy, unspecified, unspecified trimester (principal); Z3A.00 Weeks of gestation of pregnancy not specified
CPT/HCPCS: 36415; 80053; 82570; 84156; 85025; 86703; 86762; 86780; 86803; 86850; 86900; 86901; 87086; 87340; 87491; 87591